=== PATIENT | male | born 1950 | race Caucasian/White ===

== ENCOUNTER 2018-06-27 08:38 | Emergency (ER) | payer MEDICARE, OTHER ==
[~2018-06-27] VITALS: Ht 175.3 cm; Wt 90.9 kg
[~2018-06-27 08:38] MED LIST: NITRIC OXIDE IH; SAW PALMETTO S450 MG PO
[2018-06-27 08:44] VITALS: TEMP 98.1
[2018-06-27 09:20] LABS: BASO % 0.1 % (0.0-2.0); EOS # 0.1 (0.0-0.7); EOS % 0.8 % (0-4.0); GRAN # 7.1 (1.4-6.5); GRAN % 73.7 % (42.2-75.2); HEMATOCRIT 43.2 % (42.0-52.0); HEMOGLOBIN 14.9 g/dl (13.5-18.0); LYMPH # 1.6 (1.2-3.4); LYMPH % 16.5 % (20.0-51.0); MEAN CELL VOLUME 94 fl (80.0-100.0); MEAN CORPUSCULAR HEMOGLOBIN 32 pg (27.0-31.0); MEAN CORPUSCULAR HGB CONC 35 g/dl (33.0-37.0); MEAN PLATELET VOLUME 10.4 fl (7.4-10.4); MONO # 0.8 (0.1-0.6); MONO % 8.6 % (1.7-9.3); PLATELET COUNT 172 K/mm3 (130-400); RED BLOOD COUNT 4.62 M/mm3 (4.20-5.60); REDCELL DISTRIBUTION WIDTH-CV 12.5 % (11.5-14.5)
[2018-06-27] MEDS ORDERED: PROSVENT PO (09:22)
[2018-06-27] MEDS ORDERED: FLOMAX 0.40.4 MG/CAP PO (09:22)
[2018-06-27] MEDS ORDERED: CEROVITE SENIOR1 TA1 PO (09:23)
[2018-06-27] MEDS ORDERED: COLACE 100100 MG/CAP PO (09:23)
[2018-06-27] MEDS ORDERED: B COMPLEX #11 TAB PO (09:24)
[2018-06-27] MEDS ORDERED: FLAX OIL1000 MG PO (09:24)
[2018-06-27] MEDS ORDERED: NITRIC OXIDE PO (09:25)
[2018-06-27 09:31] LABS: ALBUMIN 3.8 gm/dL (3.5-5.0); BILIRUBIN,TOTAL 0.8 mg/dL (0.0-1.0); C-REACTIVE PROTEIN 1.1 mg/dL (0.0-0.9); CALCIUM 8.6 mg/dL (8.4-10.2); CREATININE, serum 1.09 mg/dL (0.66-1.25); TOTAL PROTEIN 7.1 gm/dL (6.4-8.2)
[2018-06-27 09:38] LABS: COLLECTION METHOD CLEAN CATCH
[2018-06-27 09:46] LABS: PH 7 (5-8); SQUAMOUS EPITHELIAL 0-2 /hpf; URINE APPEARANCE Clear; URINE BACTERIA None Seen /hpf; URINE BILIRUBIN Negative (NEGATIVE); URINE BLOOD Negative (NEGATIVE); URINE COLOR Yellow; URINE GLUCOSE Negative (NEGATIVE); URINE KETONE Negative (NEGATIVE); URINE LEUKOCYTE ESTERASE Negative (NEGATIVE); URINE NITRATE Negative (NEGATIVE); URINE PROTEIN(semi-quant) Negative (NEGATIVE); URINE RBC 0-2 /hpf; URINE UROBILINOGEN Negative (NEGATIVE)
[2018-06-27] MEDS ORDERED: FLAGYL500 MG PO (10:18)
[2018-06-27] MEDS ORDERED: CIPRO 500MG TA500 MG PO (10:18)
[2018-06-27 10:46] VITALS: BP 154/79; PULSE 48
== END 2018-06-27 10:45 | disposition home or self-care (01) ==
LOC: COL.ER 08:38
PROVIDERS: Physician Assistant
DX: K57.32 Diverticulitis of large intestine without perforation or abscess without bleeding (principal); N40.0 Benign prostatic hyperplasia without lower urinary tract symptoms; Z88.5 Allergy status to narcotic agent
CPT/HCPCS: J1885; J2405; J7030; Q9967

== ENCOUNTER 2019-04-23 09:46 | Emergency (ER) | payer MEDICARE, OTHER ==
[~2019-04-23] VITALS: Ht 175.3 cm; Wt 93.2 kg
[~2019-04-23 09:46] MED LIST changes: +B COMPLEX #11 TAB PO; +CEROVITE SENIOR1 TA1 PO; +CIPRO 500MG TA500 MG PO; +COLACE 100100 MG/CAP PO; +FLAGYL500 MG PO; +FLAX OIL1000 MG PO; +FLOMAX 0.40.4 MG/CAP PO; +NITRIC OXIDE PO; +PROSVENT PO
[2019-04-23 09:52] VITALS: BP 130/65; TEMP 96.9
[2019-04-23] MEDS ORDERED: GENTAMICIN EYE D5 ML OD ×2 (10:23→10:40)
[2019-04-23 10:40] VITALS: PULSE 50
== END 2019-04-23 10:40 | disposition home or self-care (01) ==
LOC: COL.ER 09:46
DX: T15.01XA Foreign body in cornea, right eye, initial encounter (principal); Z87.438 Personal history of other diseases of male genital organs

== ENCOUNTER → 2024-01-11 | Outpatient (CLI) | payer MEDICARE, OTHER ==
[~2024-01-11] MED LIST changes: +GENTAMICIN EYE D5 ML OD; +Iohexol 300 - 100 ML VIAL IV ONE; +NS 100 ML IV SCH
== END ==
LOC: COL.RAD 08:06
DX: N28.89 Other specified disorders of kidney and ureter (principal); I70.0 Atherosclerosis of aorta; I70.8 Atherosclerosis of other arteries
CPT/HCPCS: Q9967